=== PATIENT | female | born 1980 | race Two or more races ===

== ENCOUNTER 2017-11-22 08:03 | Inpatient (IN) | payer MEDICAID, OTHER ==
[2017-11-22] VITALS (10 sets, daily range): BP systolic 96–130; BP diastolic 49–78
[~2017-11-22] VITALS: Ht 162.6 cm; Wt 74.8 kg
[2017-11-22 09:31] LABS: Basophils # (auto) 0 uL; Basophils % (auto) 0.3 % (0.0-2.0); Eosinophils # (auto) 0.1 uL; Eosinophils % (auto) 0.9 % (0.0-7.0); Hematocrit 38.6 % (36.0-46.0); Hemoglobin 12.7 g/dL (12.2-16.2); Lymphocytes # (auto) 1.5 uL; Mean Corpuscular Hemoglobin 31.2 pg (28.0-32.0); Mean Corpuscular Hgb Conc. 32.8 g/dL (32.0-36.0); Monocytes # (auto) 0.7 uL; Monocytes % (auto) 9.9 % (0.0-12.0); Neutrophils # (auto) 4.9 uL; Neutrophils % (auto) 67.9 % (37.0-80.0); Platelet Count (auto) 185 10^3/uL (140-450); Red Blood Cells 4.06 10^6/uL (4.0-5.20); Red Cell Distribution Width 13.8 % (11.8-14.3); White Blood Cell 7.3 10^3/uL (4.4-10.8)
[2017-11-22 09:42] LABS: Urine Bacteria FEW /hpf (None Seen); Urine Blood Negative /uL (Negative); Urine Specific Gravity 1.019 (1.001-1.035); Urine WBC 20 /hpf (0 - 5)
[2017-11-22 09:49] LABS: Albumin 2.5 g/dL (3.4-5.0); BUN/Creatinine Ratio 18.5; Calcium 7.9 mg/dL (8.5-10.1); Potassium 3.8 mmol/L (3.5-5.1)
[2017-11-22 09:51] LABS: Bilirubin, Total 0.3 mg/dL (0.2-1.0); Total Protein 6.6 g/dL (6.4-8.2)
[2017-11-22 09:52] LABS: INR 0.85 (0.9-1.15); Partial Thromboplastin Time 26.7 sec (23.78-33.04); Prothrombin Time 9.2 sec (9.27-12.13)
[2017-11-22] MEDS ORDERED: TETRACAINE 1% INJ 2 ML VIAL IJ ONE (09:59)
[2017-11-22] MEDS ORDERED: fentaNYL CITRATE 100 MCG/2 ML VL ONE (10:07)
[2017-11-22] MEDS ORDERED: MORPHINE SULF(PF) 0.5MG/ML 10ML VIAL ONE (10:07)
[2017-11-22] MEDS ORDERED: MIDAZOLAM HCL 1MG/1ML-2 ML VIAL ONE (10:07)
[2017-11-22] MEDS ORDERED: ONDANSETRON HCL 4 MG/2 ML VIAL IV PRN ×2 (10:15→11:00)
[2017-11-22] MEDS ORDERED: MIDAZOLAM HCL 1MG/1ML-2 ML VIAL IV PRN (10:15)
[2017-11-22] MEDS ORDERED: NALBUPHINE HCL 10 MG/1ml INJECTION SUBCUT ONE (10:15)
[2017-11-22] MEDS ORDERED: LABETALOL HCL 5 MG/ML 4ML SYRINGE IV PRN (10:15)
[2017-11-22] MEDS ORDERED: KETOROLAC TROMETH 30 MG/ML 1ML VIAL IV PRN (10:15)
[2017-11-22] MEDS ORDERED: DEXAMETHASONE SOD PHOS 10MG/1ML VIAL INJ IV PRN (10:15)
[2017-11-22] MEDS ORDERED: HYDROmorphone HCL 2 MG/ML VL IV PRN ×2 (10:15→10:30)
[2017-11-22] MEDS ORDERED: ePHEDrine SULFATE 50 MG/ML AMP IV PRN (10:15)
[2017-11-22] MEDS ORDERED: NALOXONE HCL 0.4 MG/ML VIAL IV PRN (10:15)
[2017-11-22] MEDS ORDERED: diphenhdrAMINE HCL 50 MG/1 ML VL IV PRN (10:15)
[2017-11-22] MEDS ORDERED: ceFAZolin 1GM VL ONE (10:25)
[2017-11-22] MEDS ORDERED: PHENYLEPHRINE HCL 10 MG/ML VL ONE (10:31)
[2017-11-22] MEDS ORDERED: OXYTOCIN 10 UNIT/ML 10ML VIAL ONE (10:31)
[2017-11-22] MEDS ORDERED: LACT. RINGERS/OXYTOCIN 20UNITS 1,000 ML IV SCH (10:58)
[2017-11-22] MEDS: ceFAZolin 1GM/50ML 50 ML IV SCH ×2 (11:00→18:44)
[2017-11-22] MEDS ORDERED: MORPHINE SULFATE 4 MG/ML SYR/VIAL IV PRN (11:00)
[2017-11-22] MEDS: LACTATED RINGER'S 1,000 ML IV SCH ×2 (16:37→21:07)
[2017-11-22] MEDS: KETOROLAC TROMETH 30 MG/ML 1ML VIAL IV PRN (18:44)
[2017-11-22 19:59] LABS: Basophils # (auto) 0 uL; Basophils % (auto) 0.1 % (0.0-2.0); Eosinophils # (auto) 0 uL; Eosinophils % (auto) 0.3 % (0.0-7.0); Hematocrit 36.2 % (36.0-46.0); Hemoglobin 12.4 g/dL (12.2-16.2); Lymphocytes # (auto) 1.2 uL; Lymphocytes % (auto) 12.8 % (10.0-50.0); Mean Corpuscular Hemoglobin 32.6 pg (28.0-32.0); Mean Corpuscular Hgb Conc. 34.4 g/dL (32.0-36.0); Mean Corpuscular Volume 94.9 fL (80.0-100.0); Monocytes # (auto) 0.6 uL; Monocytes % (auto) 6.1 % (0.0-12.0); Neutrophils # (auto) 7.9 uL; Neutrophils % (auto) 80.7 % (37.0-80.0); Nucleated Red Blood Cells % 0.1 %; Platelet Count (auto) 170 10^3/uL (140-450); Red Blood Cells 3.81 10^6/uL (4.0-5.20); White Blood Cell 9.7 10^3/uL (4.4-10.8)
[2017-11-22] MEDS ORDERED: ceFAZolin 1GM/50ML 50 ML IV SCH (22:00)
[2017-11-23 02:40] VITALS: BP 122/71
[2017-11-23] MEDS ORDERED: ceFAZolin 1GM/50ML 50 ML IV SCH ×2 (03:00)
[2017-11-23] MEDS ORDERED: ceFAZolin 1GM/50ML 50 ML IV ONE ×3 (03:00→11:00)
[2017-11-23] MEDS: KETOROLAC TROMETH 30 MG/ML 1ML VIAL IV PRN (03:30)
[2017-11-23 06:32] LABS: Basophils # (auto) 0 uL; Basophils % (auto) 0.2 % (0.0-2.0); Eosinophils # (auto) 0 uL; Eosinophils % (auto) 0.4 % (0.0-7.0); Hematocrit 31.3 % (36.0-46.0); Hemoglobin 10.7 g/dL (12.2-16.2); Lymphocytes # (auto) 1.2 uL; Lymphocytes % (auto) 15.8 % (10.0-50.0); Mean Corpuscular Hemoglobin 32.3 pg (28.0-32.0); Mean Corpuscular Hgb Conc. 34.1 g/dL (32.0-36.0); Mean Corpuscular Volume 94.7 fL (80.0-100.0); Monocytes # (auto) 0.5 uL; Monocytes % (auto) 7.4 % (0.0-12.0); Neutrophils # (auto) 5.6 uL; Neutrophils % (auto) 76.2 % (37.0-80.0); Platelet Count (auto) 153 10^3/uL (140-450); Red Cell Distribution Width 14.1 % (11.8-14.3); White Blood Cell 7.3 10^3/uL (4.4-10.8)
[2017-11-23 07:00] VITALS: BP 110/62
[2017-11-23] MEDS ORDERED: BISACODYL 10 MG RECT SUPP PR PRN (09:45)
[2017-11-23] MEDS: DOCUSATE CALCIUM 240 MG CAP PO SCH (10:00)
[2017-11-23] MEDS: DOCUSATE SOD 100 MG CAP PO SCH ×2 (10:00→21:49)
[2017-11-23] MEDS: FERROUS SULFATE 325 MG TAB PO SCH ×2 (10:00→21:49)
[2017-11-23 11:03] VITALS: BP 107/70
[2017-11-23] MEDS: SIMETHICONE 80 MG CHEWABLE TABLET PO SCH ×3 (12:00→21:50)
[2017-11-23 15:05] VITALS: BP 114/64
[2017-11-23] MEDS: HYDROcodone-ACET 5/325MG TAB PO PRN ×2 (15:34→21:50)
[2017-11-23 19:00] VITALS: BP 117/69
[2017-11-23 23:00] VITALS: BP 101/66
[2017-11-24 02:50] VITALS: BP 110/60
[2017-11-24] MEDS: IBUPROFEN 800 MG TAB PO PRN ×2 (03:47→16:47)
[2017-11-24] MEDS: SIMETHICONE 80 MG CHEWABLE TABLET PO SCH ×4 (05:43→21:15)
[2017-11-24 06:51] VITALS: BP 103/57
[2017-11-24] MEDS: FERROUS SULFATE 325 MG TAB PO SCH ×2 (09:57→21:14)
[2017-11-24] MEDS: DOCUSATE SOD 100 MG CAP PO SCH ×2 (09:57→21:15)
[2017-11-24] MEDS: DOCUSATE CALCIUM 240 MG CAP PO SCH (09:58)
[2017-11-24 10:47] LABS: RPR Non Reactive (Non Reactive)
[2017-11-24 11:00] VITALS: BP 112/63
[2017-11-24] MEDS: HYDROcodone-ACET 5/325MG TAB PO PRN ×2 (12:25→21:15)
[2017-11-24 15:19] VITALS: BP 105/64
[2017-11-24 18:40] VITALS: BP 106/83
[2017-11-24 22:39] VITALS: BP 108/57
[2017-11-25 03:00] VITALS: BP 103/58
[2017-11-25] MEDS: SIMETHICONE 80 MG CHEWABLE TABLET PO SCH (05:42)
[2017-11-25 07:00] VITALS: BP 116/65
[2017-11-25] MEDS: HYDROcodone-ACET 5/325MG TAB PO PRN (07:26)
[2017-11-25] MEDS: DOCUSATE SOD 100 MG CAP PO SCH (10:10)
[2017-11-25] MEDS: DOCUSATE CALCIUM 240 MG CAP PO SCH (10:10)
[2017-11-25] MEDS: FERROUS SULFATE 325 MG TAB PO SCH (10:11)
[2017-11-25 11:00] VITALS: BP 100/71
== END 2017-11-25 11:40 | disposition home or self-care (01) | DRG 540 ==
LOC: OBSVTOIN 08:03 → LDRP 08:03
PROVIDERS: ADMIT Obstetrics & Gynecology; ATTEND Obstetrics & Gynecology
PROC: 10D00Z1 Extraction of Products of Conception, Low, Open Approach (ICD-10-PCS; 2017-11-22)
PROC: 0UL70CZ Occlusion of Bilateral Fallopian Tubes with Extraluminal Device, Open Approach (ICD-10-PCS; principal; 2017-11-22 10:02)
DX: O32.1XX0 Maternal care for breech presentation, not applicable or unspecified (principal); O09.523 Supervision of elderly multigravida, third trimester; Z30.2 Encounter for sterilization; Z37.0 Single live birth; Z3A.39 39 weeks gestation of pregnancy
CPT/HCPCS: 36415; 59025; 76815; 80053; 81001; 81002; 85025; 85610; 85730; 86592; 86850; 86900; 86901; 96361; 96366; 96374; J0690; J1885; J2250; J2405; J2590